=== PATIENT | male | born 1950 ===

== ENCOUNTER 2018-12-21 15:57 | Inpatient (IN) | payer MEDICARE ==
[~2018-12-21] VITALS: Ht 167.6 cm; Wt 63.4 kg
[2018-12-21] MEDS ORDERED: ASPIRIN 81M81 MG/TA2 PO (16:34)
[2018-12-21] MEDS ORDERED: LIPITOR 40MG TA40 MG PO (16:39)
[2018-12-21] MEDS ORDERED: ZESTRIL 10MG10 MG PO (16:39)
[2018-12-21] MEDS ORDERED: GLUCOTROL10 MG PO (16:41)
[2018-12-21 18:12] VITALS: BP 102/59; PULSE 87; TEMP 98
--- NOTE | 2018-12-21 19:30 | NUR ---
Report received from Tami SHEA. Patient up to the bathroom CGA and steadying assist with no device-gait intially swaying. Manages all toileting tasks and rests back in bed. Admission assessment B completed at this time. Patient denies pain. Accu check 168 and supper tray brought in.
--- NOTE | 2018-12-21 19:55 | NUR ---
Patient arrived to room #339 via wheelchair and has completed his menu for tomorrow. Inital was completed on patient.
--- NOTE | 2018-12-21 22:30 | NUR ---
Patient rests on right side with eyes closed. Respirations with ease.
--- NOTE | 2018-12-22 01:00 | NUR ---
Patient rests with eyes closed. Respirations with ease.
[2018-12-22 05:54] VITALS: BP 86/40; PULSE 74; TEMP 98.4
--- NOTE | 2018-12-22 06:03 | NUR ---
Awakened for vitals signs bp low but denies c/o. States slept well last night.
[2018-12-22 06:23] VITALS: BP 108/62
--- NOTE | 2018-12-22 14:50 | NUR ---
SW met with the patient to to an intial assessement; pt is new to [facility]. The pt lives in [place] with his daugther and her family. The pt does not use DME and reports independence with ADLs. The pt does not have a PCP at this time but was interested in a list of local physicians and pt receives medications from [facility] in with no difficulties. SW provided list. The pt does not have advanced directives in the EMR. The pt plans to return home upon discharge with his daughter providing transportation. SW presented Team Conference I notes and discussed care. Patient does not have any questions or concerns at this time. SW will continue to follow to assist with discharge recommendations.
[2018-12-22 16:28] VITALS: BP 128/67; PULSE 82; TEMP 98.3
--- NOTE | 2018-12-22 17:59 | NUR ---
Report from SHABBIR Cuba. Pt A&O, pleasantly cooperative, multilingual, [place] is not first language, has accent. Held zestril this morning d/t low BP, pt requested glipizide be changed to BID, see new orders, on SSI, edu pt on symptoms of hypoglycemia. Stood at sink for oral cares.
--- NOTE | 2018-12-22 20:00 | NUR ---
Patient sitting up in recliner visiting on phone. Denies pain or needs. Reviewed new order for heparin SQ and side effects/safety with patient.
--- NOTE | 2018-12-22 21:00 | NUR ---
Patient resting in bed. HS meds reviewed and given.
--- NOTE | 2018-12-23 01:30 | NUR ---
Patient awakened and called for assist up to the bathroom then back to bed. Denies needs.
[2018-12-23 05:57] VITALS: BP 109/54; PULSE 74; TEMP 97.6
--- NOTE | 2018-12-23 07:58 | NUR ---
Report from SHABBIR Cuba. Pt to chair for breakfast, held Zestril d/t low BP, no SSI required, denies pain, CGA with gait belt as pt retrieved clothes and dressed sitting bedside. Glasses and yellow gripper socks with slippers in place.
--- NOTE | 2018-12-23 15:36 | NUR ---
Pt ate lunch sitting up in chair, no needs at that time.
[2018-12-23 15:47] VITALS: BP 110/68; PULSE 86; TEMP 98.2
--- NOTE | 2018-12-23 20:00 | NUR ---
PT SITTING IN RECLINER. SON AND GRANDSON FROM OUT OF STATE VISITING. SPEAKING DIFFERENT LANGUAGE. DENIES NEEDS AT THIS TIME. CHAIR ALARM SET. CALL LIGHT IN REACH.
[2018-12-24 05:05] VITALS: BP 141/80; PULSE 80; TEMP 98.3
--- NOTE | 2018-12-24 09:34 | NUR ---
Patient reports that he did not get, but one hour of sleep last night due to bilateral foot cramping, but most specifically burning pain to right little toe. Patient reports that he tried rubbing the area, but did not help at all.
--- NOTE | 2018-12-24 10:56 | NUR ---
Call placed to Dr. Corrales to request pain meds. See new order for [place]. Gary with PT suggested k-pad to right foot. Patient currently resting in recliner with k-pad on foot. Will continue to monitor.
[2018-12-24 13:12] LABS: CALCIUM 9.5 mg/dL (8.4-10.2); CREATININE, serum 1.48 (0.66-1.25); MAGNESIUM 2.2 mg/dL (1.6-2.3); POTASSIUM 4.8 mmol/L (3.4-5.0)
--- NOTE | 2018-12-24 14:18 | NUR ---
Physical Therapy is recommending outpatient PT. SW met with the patient to discuss recommendation and provided a list of OP PT locations. The pt was resting and will chose a location at a later time. SW will continue to follow to assist with a safe discharge.
[2018-12-24 18:13] VITALS: BP 98/59; PULSE 80; TEMP 98
--- NOTE | 2018-12-24 21:00 | NUR ---
PT C/O BILAT LE NEUROPATHY PAIN LEVEL 10/11. SEE MAR FOR NEUROTIN AND TYLENOL GIVEN. BILAT STRENGTH EQUAL MEASUREMENT PSYCHOLOGIST AND FEET. A&OX4.
[2018-12-25 05:24] VITALS: BP 110/60; PULSE 70; TEMP 98.3
[2018-12-25 08:18] VITALS: BP 100/57
--- NOTE | 2018-12-25 09:24 | NUR ---
Patient working with OT at this time. Patient reported sleeping well last night with left foot wrapped with talat bandage. He tolerated diet well this morning. Denied questions at this time.
--- NOTE | 2018-12-25 10:45 | NUR ---
Patient at group therapy at this time.
--- NOTE | 2018-12-25 12:30 | NUR ---
Patient returned from therapy and is currently resting in recliner, call light in reach eating lunch. Will continue to monitor.
--- NOTE | 2018-12-25 13:43 | NUR ---
Patient was able to transfer himself from recliner to bed with observation only by this nurse. Patient currently sleeping in bed, call light in reach and bed alarm is set. Will continue to monitor.
--- NOTE | 2018-12-25 14:47 | NUR ---
Patient currently resting in bed at this time, call light in reach and son and grandson by his side.
[2018-12-25 18:14] VITALS: BP 127/64; PULSE 80; TEMP 97.9
--- NOTE | 2018-12-25 21:00 | NUR ---
PT SITTING IN RECLINER. SON AND GRANDSON HERE TO VISIT. PT USING HIS LAPTOP. NOT VERY TALKATIVE. RELATES NEUROPATHY PAIN BETTER. VERY NONSPECIFIC WITH HIS ANSWERS. CALL LIGHT IN REACH. CHAIR ALARM TURNED ON.
--- NOTE | 2018-12-26 05:46 | NUR ---
BLOOD SUGAR 63- OJ GIVEN
[2018-12-26 05:47] VITALS: BP 109/64; PULSE 73; TEMP 97.7
--- NOTE | 2018-12-26 10:08 | NUR ---
Report from SHABBIR Lloyd. Pt to chair for breakfast. Dentures in place, meds reviewed, no SSI and held BP pill d/t low BP. Pt amb mary with gait belt and CGA, steady, scuffs right foot slightly, arms do not swing normally. Returned to chair with alarm on.
--- NOTE | 2018-12-26 12:34 | NUR ---
Pt wanted to go to bed at 1130, was asleep at lunch time, awakened, states he wants to sleep longer before eating lunch. Enc to call for needs.
--- NOTE | 2018-12-26 14:00 | NUR ---
Pt to chair eating lunch when Dr. Corrales rounded.
[2018-12-26 15:22] VITALS: BP 133/72; PULSE 75; TEMP 97.2
[2018-12-26 16:28] VITALS: BP 99/50; PULSE 79; TEMP 97.6
--- NOTE | 2018-12-26 19:15 | NUR ---
AMB WITH SBA >150FT WITH SHORT REST STOPS. RT LEG WEAKER WITH GAIT. RETURN AND RESTING IN BED. DENIES FURTHER NEUROPATHY PAIN.
--- NOTE | 2018-12-26 20:57 | NUR ---
PT AWAKE IN BED. WATCHING TV AND ON COMPUTER. DENIES NEEDS.
--- NOTE | 2018-12-27 05:35 | NUR ---
PT SLEPT THROUGH THE NIGHT. RESTFUL NIGHT.
[2018-12-27 05:54] VITALS: BP 104/54; PULSE 70; TEMP 98.1
--- NOTE | 2018-12-27 07:28 | NUR ---
Report from SHABBIR Lloyd. Pt called to have alarm turned off to get out of bed to toilet and sit in chair for breakfast. Pt steady. Glasses in place, slippers on.
--- NOTE | 2018-12-27 14:05 | NUR ---
ASHLEY met with the patient to introduce oneself and to check-in after the weekend. The patient states that he is doing good and that he has been pushing himself. The patient was drinking a cup of coffee and he informed ASHLEY that he was having his morning cup of coffee when the stroke happened. He states that he does not have a preference for outpatient therapy yet. He states that he plans to get back to his daughter's house in [place] upon discharge and is hopeful to return back to [place] in the future. ASHLEY provided the patient with phone number. The patient had no other questions or concerns at this time. SW to continue to follow.
[2018-12-27 16:11] VITALS: BP 137/69; PULSE 71; TEMP 98.3
--- NOTE | 2018-12-27 16:15 | NUR ---
Pt meryl Indep in room, has not voiced any needs from nursing. Reviewed plan to discharge home soon, asked pt to chose PCP and neurologist, pt concerned about f/u about heart monitor per RUPALI toro.
--- NOTE | 2018-12-27 16:43 | NUR ---
ASHLEY met with the patient to discuss setting up a family meeting and the plan for a tentative discharge for Thursday, 12/29, with outpatient PT. The patient provided his daughter with ASHLEY's contact information. ASHLEY then received a call from his daughter, Yenifer. Yenifer was in agreeance to the plan. A family meeting was scheduled for tomorrow, 12/28, at 1315. Yenifer informed ASHLEY that they would prefer [facility] for outpatient PT and that the patient does need set up with a PCP in [place]. They did not have a preference on who. ASHLEY contacted [facility] and secured an appointment with Kacey Davalos PA-C for Thursday, 01/05, at 1430. ASHLEY also contacted and secured an appointment for outpatient PT at [facility] for Thursday, 12/31, at 1515. ASHLEY will need to provide the patient with [facility]'s registration paperwork and fax them the patient's discharge orders. ASHLEY informed the patient's RN of appointments. ASHLEY to continue to follow.
--- NOTE | 2018-12-27 19:11 | NUR ---
Report received from SHABBIR Knight
--- NOTE | 2018-12-27 20:44 | NUR ---
Resting in bed. Assessment complete. Left lobes diminished. Right lobes clear. Heart sounds normal. Bowels active x4. Pulses strong throughout. No edema noted at this time. Denies pain. Denies needs. Call light in reach.
[2018-12-28 06:00] VITALS: BP 135/69; PULSE 78; TEMP 98.4
--- NOTE | 2018-12-28 06:08 | NUR ---
Patient had uneventful night. Resting in bed this AM. Denies needs. Call light in reach.
--- NOTE | 2018-12-28 07:03 | NUR ---
Report given to SHABBIR Knight
--- NOTE | 2018-12-28 07:17 | NUR ---
Report from SHABBIR Eduardo. Pt meryl indep in room. To chair for breakfast with glasses and slippers in place, dressed.
--- NOTE | 2018-12-28 09:31 | NUR ---
Pt concerned about phone calls recieved from [employer] re: outpatient 30 day heart monitor as ordered by Jodie Goins at . This nurse called [employer] and assisted pt in calling to authorize his daughter to communicate with company. [employer] reports monitor was delivered 12/23, pt called daughter to check delivery, and encouraged to bring to hospital for assistance with applying to pt.
--- NOTE | 2018-12-28 13:33 | NUR ---
SW attended a family meeting with the patient and the patient's daughter, Yenifer, on speaker phone. IPR Director, Vandana, started by explaining the purpose of the meeting. PT, OT, ST then discussed how the patient is doing with the recommendation of a discharge for tomorrow, 12/29, with outpatient PT. SW informed the patient and his daughter of [facility] and with Kacey Davalos for a PCP. The patient and his daughter are in agreeance to the plan. The team answered all of patient and daughter's questions. SW to continue to follow.
--- NOTE | 2018-12-28 14:08 | NUR ---
Pt conversed more today as time allowed, edu about risk factors for having another stroke and how to manage current risk factors, discharge plan reviewed. Pt denies needs at this time.
[2018-12-28 17:11] VITALS: BP 122/67; PULSE 69; TEMP 98.1
--- NOTE | 2018-12-28 17:13 | NUR ---
Pt indep in rm, no SSI, no needs.
--- NOTE | 2018-12-28 18:45 | NUR ---
Report received from SHABBIR Knight
--- NOTE | 2018-12-28 20:21 | NUR ---
Resting in bed. Assessment complete. Lungs clear. Heart sounds normal. Bowels active x4. Pulses strong throughout. No edema noted. Denies pain at this time. Blood sugar 89. Refused snack. Will recheck later this evening. Patient educated on monitoring. Denies any needs. Call light in reach.
--- NOTE | 2018-12-29 01:00 | NUR ---
Resting in bed. Denies needs.
[2018-12-29 05:57] VITALS: BP 100/54; PULSE 67; TEMP 98.2
--- NOTE | 2018-12-29 06:08 | NUR ---
Patient had uneventful night. Resting in bed this AM. Denies needs.
--- NOTE | 2018-12-29 07:05 | NUR ---
Report given to SHABBIR Garrett
[2018-12-29 08:38] VITALS: BP 113/62
--- NOTE | 2018-12-29 09:46 | NUR ---
Patient resting in recliner at this time, call light in reach and is independent is his room. Discussed with patient discharge happening this afternoon. Denied pain or questions at this time.
[2018-12-29] MEDS ORDERED: NEURONTIN100 MG/CAP PO (11:00)
[2018-12-29] MEDS ORDERED: ZESTRIL 5MG5 MG PO (11:00)
[2018-12-29] MEDS ORDERED: GLUCOTROL 5M5 MG/TAB PO (11:44)
--- NOTE | 2018-12-29 12:49 | NUR ---
The patient is to discharge back home with his family today, 12/29, and outpatient PT at [facility]. SW contacted and faxed the patient's discharge orders to [facility]. SW presented and explained the IM form to the patient. The patient verbalized understanding, signed, and he was provided a copy. No additional needs at this time.
--- NOTE | 2018-12-29 16:59 | NUR ---
Patient Health Summary, Discharge Summary and Home Meds printed and reviewed with patient and daughter. Stressed importance of follow up appointments. Called prescription for Atorvastatin into pharmacy of choice. Belongings gathered by patient/daughter including dentures, glasses, gold ring, cell phone, gyro mechanic, change of clothes and shoes. Patient transported via wheelchair by RN/Tami and seatbelted for ride home with daughter. Patient and daughter denied any questions.
== END 2018-12-29 17:00 | disposition home or self-care (01) | DRG 57 ==
PROVIDERS: ADMIT Internal Medicine
DX: I69.251 Hemiplegia and hemiparesis following other nontraumatic intracranial hemorrhage affecting right dominant side (principal); I62.9 Nontraumatic intracranial hemorrhage, unspecified; N17.9 Acute kidney failure, unspecified; I10 Essential (primary) hypertension; Z79.82 Long term (current) use of aspirin; E11.40 Type 2 diabetes mellitus with diabetic neuropathy, unspecified
CPT/HCPCS: 99222-AI; 99232-AI; 99239; J1644; J1815